=== PATIENT | male | born 1955 | race Two or more races ===

== ENCOUNTER 2022-04-10 14:28 | Emergency (ER) | payer OTHER ==
[~2022-04-10] VITALS: Ht 175.3 cm; Wt 91.2 kg
[2022-04-10] MEDS ORDERED: ZOLOFT20 MG/1 ML PO (14:40)
[2022-04-10] MEDS ORDERED: TAMS0.4C PO (14:40)
== END 2022-04-10 20:50 | disposition home or self-care (01) ==
LOC: ER 14:28
DX: S49.92XA Unspecified injury of left shoulder and upper arm, initial encounter (principal); S89.92XA Unspecified injury of left lower leg, initial encounter; S69.92XA Unspecified injury of left wrist, hand and finger(s), initial encounter; S59.902A Unspecified injury of left elbow, initial encounter; W18.30XA Fall on same level, unspecified, initial encounter; Y93.F1 Activity, caregiving, bathing; Y92.012 Bathroom of single-family (private) house as the place of occurrence of the external cause; S59.912A Unspecified injury of left forearm, initial encounter; Z88.1 Allergy status to other antibiotic agents